=== PATIENT | male | born 1940 | race Asian ===

== ENCOUNTER 2018-08-26 05:29 | Inpatient (IN) | payer OTHER ==
[2018-08-26] VITALS (12 sets, daily range): BP systolic 113–207; BP diastolic 57–97; TEMP 98–98.4; Ht 170.2 cm; Wt 89.5 kg
[~2018-08-26] VITALS: Ht 170.2 cm; Wt 89.5 kg
[2018-08-26 05:53] LABS: PLATELET COUNT 260 K/uL (142-355)
[2018-08-26 06:02] LABS: POTASSIUM 3.8 mmol/L (3.6-5.2)
[2018-08-26 15:41] LABS: PARTIAL THROMBOPLASTIN TIME 22.4 SECONDS (24.5-33.6)
[2018-08-27] VITALS: BP 129/60
[2018-08-27] MEDS ORDERED: DOCU100C10 PO (03:37)
[2018-08-27] MEDS ORDERED: AMLODIPINE BESYLATE PO (03:37)
[2018-08-27] MEDS ORDERED: FINA5TAB2 PO (03:38)
[2018-08-27] MEDS ORDERED: TIROSINT50 MCG PO (03:39)
[2018-08-27] MEDS ORDERED: OLANZAPINE5 M1 PO (03:40)
[2018-08-27] MEDS ORDERED: POTASSIUM CHLO20 ME1 PO (03:42)
[2018-08-27] MEDS ORDERED: TAMS0.4C PO (03:43)
[2018-08-27] MEDS ORDERED: VITAMIN C1000 MG PO (03:44)
[2018-08-27] MEDS ORDERED: MIRALAX3350 N1 PO (03:46)
[2018-08-27] MEDS ORDERED: IBU800 MG PO (03:47)
[2018-08-27] MEDS ORDERED: DIPH50CA30 PO (03:48)
[2018-08-27] MEDS ORDERED: TUSSIN ADU100 MG/5 M PO (03:49)
[2018-08-27] MEDS ORDERED: MILK OF MA400 MG/5 M PO (03:50)
[2018-08-27] MEDS ORDERED: DISPOSABLE RE (03:52)
[2018-08-27] MEDS ORDERED: TYLENOL325 MG PO (03:52)
== END 2018-08-27 00:10 | disposition other institution (70) | DRG 282 ==
LOC: ED 05:29 → ICU 07:35
PROVIDERS: ADMIT Internal Medicine
DX: I21.29 ST elevation (STEMI) myocardial infarction involving other sites (principal); I10 Essential (primary) hypertension; E03.8 Other specified hypothyroidism; Z86.73 Personal history of transient ischemic attack (TIA), and cerebral infarction without residual deficits; R31.9 Hematuria, unspecified; N40.0 Benign prostatic hyperplasia without lower urinary tract symptoms; F25.0 Schizoaffective disorder, bipolar type; E78.49 Other hyperlipidemia; E55.9 Vitamin D deficiency, unspecified
CPT/HCPCS: 36415; 80053; 81000; 82550; 82553; 84484; 85027; 85610; 85730; 93005; 99285; J1650